=== PATIENT | male | born 1995 | race Native Hawaiian/Other Pacific Islander ===

== ENCOUNTER 2017-04-10 07:46 | Day surgery (SDC) | payer BC ==
[~2017-04-10] VITALS: Ht 30.5 cm; Wt 0.5 kg
== END 2017-04-10 11:05 | disposition home or self-care (01) ==
LOC: OR 07:46
PROC: 0HQAXZZ Repair Inguinal Skin, External Approach (ICD-10-PCS; principal; 2017-04-10)
DX: N99.89 Other postprocedural complications and disorders of genitourinary system (principal)
CPT/HCPCS: J0690; J1170; J2001; J2250; J2704; J3010; J3490

== ENCOUNTER 2018-04-24 06:51 | Emergency (ER) | payer BC ==
[~2018-04-24] VITALS: Ht 172.7 cm; Wt 83.9 kg
[2018-04-24 07:01] VITALS: TEMP 97.5
[2018-04-24 08:00] LABS: PLATELET COUNT 283 K/uL (142-355)
[2018-04-24 08:03] LABS: POTASSIUM 3.8 mmol/L (3.6-5.2)
[2018-04-24 09:38] VITALS: BP 197/94
== END 2018-04-24 09:46 | disposition home or self-care (01) ==
LOC: ED 06:51
DX: F19.10 Other psychoactive substance abuse, uncomplicated (principal)
CPT/HCPCS: 36415; 80053; 80307; 81000; 85027; 96360; 99283

== ENCOUNTER 2022-05-06 09:14 | Outpatient (CLI) | payer OTHER ==
[2022-05-06 09:43] LABS: PLATELET COUNT 263 K/uL (142-355)
[2022-05-06 10:07] LABS: POTASSIUM 4.5 mmol/L (3.6-5.2)
== END 2022-05-06 20:36 | disposition home or self-care (01) ==
LOC: LABW 09:14
PROVIDERS: ATTEND Nurse Practitioner
DX: I10 Essential (primary) hypertension (principal); R53.83 Other fatigue
CPT/HCPCS: 36415; 80053; 80061; 82306; 82607; 84402; 84403; 84439; 84443; 84480; 85027; 86677

== ENCOUNTER 2022-06-06 08:30 | Outpatient (CLI) | payer OTHER | END 2022-06-06 21:35 | disposition home or self-care (01) | LOC: LABW 08:30 | PROVIDERS: ATTEND Nurse Practitioner | DX: R53.83 Other fatigue (principal) | CPT/HCPCS: 36415; 84402 ==